=== PATIENT | male | born 1980 | race African-American/Black ===

== ENCOUNTER 2017-08-23 19:16 | Emergency (ER) | payer OTHER ==
[~2017-08-23] VITALS: Ht 177.8 cm; Wt 77.0 kg
[2017-08-23 19:19] VITALS: BP 135/91
== END 2017-08-24 | disposition left against medical advice (07) ==
LOC: ER 19:16
DX: Z53.21 Procedure and treatment not carried out due to patient leaving prior to being seen by health care provider (principal)